=== PATIENT | male | born 1940 | race Caucasian/White ===

== ENCOUNTER → 2016-12-30 | Outpatient (CLI) | payer MEDICARE, BC ==
[~2016-12-30] MED LIST: ADVA250A INH; ALBU1.25 NEB; ASPI81 PO; CLOP75 PO; FEXO180 PO; FISH1000 PO; GLUCTAB47 PO; LIPI80TA16 PO; MOME17I; MONT10TA2 PO; TAB-TAB PO; TOPR50TA PO; VENTAER INH
[2016-12-30 08:50] LABS: HEMATOCRIT 41.9 % (39.0-51.0); MEAN CELL VOLUME 84.9 FL (80.0-100.0); MEAN CORPUSCULAR HEMOGLOBIN 27.8 PG (27.0-34.0); MEAN CORPUSCULAR HGB CONC 32.8 % (32.0-36.0); PLATELET COUNT 184 TH/MM3 (150-450); RED BLOOD COUNT 4.93 MIL/MM3 (4.50-5.90); RED CELL DISTRIBUTION WIDTH 14.2 % (11.6-17.2); REVIEW FLAG FINAL; WHITE BLOOD COUNT 4.3 TH/MM3 (4.0-11.0)
[2016-12-30 09:09] LABS: BACTERIA, URINE OCC /hpf; BLOOD, URINE NEG (NEG); GLUCOSE,URINE NEG (NEG); KETONE, URINE NEG (NEG); MUCUS URINE FEW /lpf (OCC); NITRITE,URINE NEG (NEG); PH, URINE 5.5 (5.0-8.5); SQUAMOUS EPITHELIAL CELL URINE <1 /hpf (0-5); URINE COLOR YELLOW (YELLW/STRAW)
[2016-12-30 09:10] LABS: MICRO ALBUMIN RANDOM URINE RAW 14.9 MG/L (0.0-30.0)
[2016-12-30 09:20] LABS: ALKALINE PHOSPHATASE 67 U/L (45-117); ALT (GPT) 40 U/L (12-78); ANION GAP 7 MEQ/L (5-15); AST (GOT) 24 U/L (15-37); BICARBONATE 31.1 MEQ/L (21.0-32.0); BLOOD UREA NITROGEN 19 MG/DL (7-18); CHLORIDE 105 MEQ/L (98-107); GLOMERULAR FILTRATION RATE 71 ML/MIN (>89); GLUCOSE,FASTING 113 MG/DL (74-99); HDL CHOLESTEROL 73.2 MG/DL (40.0-60.0); LDL CHOLESTEROL 50 MG/DL (0-99); LDL CHOLESTEROL DIRECT 71 MG/DL (0-99); POTASSIUM 4.8 MEQ/L (3.5-5.1); SODIUM (NA) 143 MEQ/L (136-145); TOTAL BILIRUBIN ADULT 0.3 MG/DL (0.2-1.0)
[2016-12-30 11:38] LABS: HEMOGLOBIN A1a 1.1 %; HEMOGLOBIN Ao 83.2 %; HEMOGLOBIN LA1C 2.1 %; HEMOGLOBIN P3 4.2 %
== END ==
LOC: PLAB 06:59
PROVIDERS: ATTEND Family Medicine
DX: I25.10 Atherosclerotic heart disease of native coronary artery without angina pectoris (principal); E11.9 Type 2 diabetes mellitus without complications; E78.2 Mixed hyperlipidemia; I10 Essential (primary) hypertension
CPT/HCPCS: 36415; 80053; 80061; 81001; 82043; 83036; 83721; 85027

== ENCOUNTER → 2017-04-04 | Outpatient (CLI) | payer MEDICARE, BC ==
[2017-04-04 09:17] LABS: HEMATOCRIT 41.9 % (39.0-51.0); MEAN CELL VOLUME 83.1 FL (80.0-100.0); MEAN CORPUSCULAR HEMOGLOBIN 27.6 PG (27.0-34.0); MEAN CORPUSCULAR HGB CONC 33.2 % (32.0-36.0); PLATELET COUNT 214 TH/MM3 (150-450); RED BLOOD COUNT 5.04 MIL/MM3 (4.50-5.90); RED CELL DISTRIBUTION WIDTH 14.6 % (11.6-17.2); REVIEW FLAG FINAL; WHITE BLOOD COUNT 3.9 TH/MM3 (4.0-11.0)
[2017-04-04 09:30] LABS: ANION GAP 9 MEQ/L (5-15); BICARBONATE 26.9 MEQ/L (21.0-32.0); BLOOD UREA NITROGEN 19 MG/DL (7-18); CHLORIDE 106 MEQ/L (98-107); GLUCOSE,FASTING 113 MG/DL (74-99); POTASSIUM 4.4 MEQ/L (3.5-5.1); SODIUM (NA) 142 MEQ/L (136-145)
[2017-04-04 09:31] LABS: AST (GOT) 30 U/L (15-37); GLOMERULAR FILTRATION RATE 71 ML/MIN (>89)
[2017-04-04 09:33] LABS: ALKALINE PHOSPHATASE 76 U/L (45-117); ALT (GPT) 44 U/L (12-78); HDL CHOLESTEROL 63.6 MG/DL (40.0-60.0); LDL CHOLESTEROL 60 MG/DL (0-99); LDL CHOLESTEROL DIRECT 60 MG/DL (0-99); TOTAL BILIRUBIN ADULT 0.4 MG/DL (0.2-1.0)
[2017-04-04 15:34] LABS: HEMOGLOBIN A1a 1.2 %; HEMOGLOBIN Ao 83.1 %; HEMOGLOBIN F 1.1 %; HEMOGLOBIN P3 4.1 %
== END ==
LOC: PLAB 07:15
PROVIDERS: ATTEND Urology
DX: R97.20 Elevated prostate specific antigen [PSA] (principal); I25.10 Atherosclerotic heart disease of native coronary artery without angina pectoris; E11.9 Type 2 diabetes mellitus without complications; E78.5 Hyperlipidemia, unspecified; I10 Essential (primary) hypertension
CPT/HCPCS: 36415; 80053; 80061; 83036; 83721; 84153; 85027

== ENCOUNTER → 2017-07-03 | Outpatient (CLI) | payer MEDICARE, BC ==
[2017-07-03 09:38] LABS: AUTOMATED NEUTROPHIL # 1.5 TH/MM3 (1.8-7.7); BASOPHIL % 0.6 % (0.0-2.0); EOSINOPHIL # 0.2 TH/MM3 (0-0.4); EOSINOPHIL % 5.8 % (0.0-4.0); HEMATOCRIT 42.5 % (39.0-51.0); HEMO FLAGS DIFF FINAL; LYMPH % 45.9 % (9.0-44.0); LYMPHOCYTE # 1.9 TH/MM3 (1.0-4.8); MEAN CELL VOLUME 84.8 FL (80.0-100.0); MEAN CORPUSCULAR HEMOGLOBIN 27.5 PG (27.0-34.0); MEAN CORPUSCULAR HGB CONC 32.4 % (32.0-36.0); MONO % 10.8 % (0.0-8.0); NEUT % 36.9 % (16.0-70.0); PLATELET COUNT 203 TH/MM3 (150-450); RED BLOOD COUNT 5.01 MIL/MM3 (4.50-5.90); RED CELL DISTRIBUTION WIDTH 14.9 % (11.6-17.2); WHITE BLOOD COUNT 4.1 TH/MM3 (4.0-11.0)
[2017-07-03 09:55] LABS: ANION GAP 7 MEQ/L (5-15); AST (GOT) 29 U/L (15-37); BICARBONATE 27.5 MEQ/L (21.0-32.0); BLOOD UREA NITROGEN 18 MG/DL (7-18); CHLORIDE 105 MEQ/L (98-107); GLOMERULAR FILTRATION RATE 82 ML/MIN (>89); GLUCOSE,FASTING 94 MG/DL (74-99); POTASSIUM 4.5 MEQ/L (3.5-5.1); SODIUM (NA) 139 MEQ/L (136-145)
[2017-07-03 09:58] LABS: ALKALINE PHOSPHATASE 74 U/L (45-117); ALT (GPT) 38 U/L (12-78); HDL CHOLESTEROL 64.2 MG/DL (40.0-60.0); LDL CHOLESTEROL 61 MG/DL (0-99); LDL CHOLESTEROL DIRECT 70 MG/DL (0-99); TOTAL BILIRUBIN ADULT 0.4 MG/DL (0.2-1.0)
[2017-07-03 15:53] LABS: HEMOGLOBIN A1a 1.2 %; HEMOGLOBIN Ao 83.2 %; HEMOGLOBIN F 1.1 %; HEMOGLOBIN P3 4.1 %
== END ==
LOC: PLAB 07:49
PROVIDERS: ATTEND Family Medicine
DX: I25.10 Atherosclerotic heart disease of native coronary artery without angina pectoris (principal); E11.9 Type 2 diabetes mellitus without complications; E78.2 Mixed hyperlipidemia; I10 Essential (primary) hypertension
CPT/HCPCS: 36415; 80053; 80061; 83036; 83721; 85025

== ENCOUNTER → 2017-10-06 | Outpatient (CLI) | payer MEDICARE, BC ==
[2017-10-06 14:13] LABS: HEMATOCRIT 42.9 % (39.0-51.0); MEAN CELL VOLUME 83.8 FL (80.0-100.0); MEAN CORPUSCULAR HEMOGLOBIN 27.8 PG (27.0-34.0); MEAN CORPUSCULAR HGB CONC 33.2 % (32.0-36.0); PLATELET COUNT 221 TH/MM3 (150-450); RED BLOOD COUNT 5.13 MIL/MM3 (4.50-5.90); RED CELL DISTRIBUTION WIDTH 14.5 % (11.6-17.2); REVIEW FLAG FINAL; WHITE BLOOD COUNT 3.8 TH/MM3 (4.0-11.0)
[2017-10-06 14:22] LABS: ANION GAP 4 MEQ/L (5-15); AST (GOT) 24 U/L (15-37); BICARBONATE 30.3 MEQ/L (21.0-32.0); BLOOD UREA NITROGEN 15 MG/DL (7-18); CHLORIDE 104 MEQ/L (98-107); GLOMERULAR FILTRATION RATE 87 ML/MIN (>89); GLUCOSE,FASTING 114 MG/DL (74-99); POTASSIUM 4.3 MEQ/L (3.5-5.1); SODIUM (NA) 138 MEQ/L (136-145)
[2017-10-06 14:26] LABS: ALKALINE PHOSPHATASE 70 U/L (45-117); ALT (GPT) 43 U/L (12-78); HDL CHOLESTEROL 75.1 MG/DL (40.0-60.0); LDL CHOLESTEROL 61 MG/DL (0-99); LDL CHOLESTEROL DIRECT 70 MG/DL (0-99); TOTAL BILIRUBIN ADULT 0.4 MG/DL (0.2-1.0)
[2017-10-06 16:19] LABS: HEMOGLOBIN A1a 1.3 %; HEMOGLOBIN A1b 1.1 %; HEMOGLOBIN Ao 82.4 %; HEMOGLOBIN F 1.2 %; HEMOGLOBIN LA1C 2.3 %; HEMOGLOBIN P3 4.3 %
== END ==
LOC: PLAB 09:12
PROVIDERS: ATTEND Family Medicine
DX: I25.10 Atherosclerotic heart disease of native coronary artery without angina pectoris (principal); E11.9 Type 2 diabetes mellitus without complications; E78.2 Mixed hyperlipidemia; I10 Essential (primary) hypertension
CPT/HCPCS: 36415; 80053; 80061; 83036; 83721; 85027

== ENCOUNTER → 2017-11-10 | Outpatient (CLI) | payer MEDICARE, BC ==
[2017-11-10 09:23] LABS: HEMATOCRIT 41.6 % (39.0-51.0); HEMOGLOBIN 13.8 GM/DL (13.0-17.0); MEAN CELL VOLUME 83.9 FL (80.0-100.0); MEAN CORPUSCULAR HEMOGLOBIN 27.9 PG (27.0-34.0); MEAN CORPUSCULAR HGB CONC 33.3 % (32.0-36.0); MEAN PLATELET VOLUME 9.2 FL (7.0-11.0); PLATELET COUNT 227 TH/MM3 (150-450); RED BLOOD COUNT 4.96 MIL/MM3 (4.50-5.90); RED CELL DISTRIBUTION WIDTH 14.9 % (11.6-17.2); WHITE BLOOD COUNT 4.4 TH/MM3 (4.0-11.0)
[2017-11-10 10:31] LABS: ALBUMIN 4.1 GM/DL (3.4-5.0); AST (GOT) 25 U/L (15-37); BICARBONATE 29.1 MEQ/L (21.0-32.0); BLOOD UREA NITROGEN 21 MG/DL (7-18); CALCIUM 9.1 MG/DL (8.5-10.1); CHLORIDE 105 MEQ/L (98-107); CREATININE 0.87 MG/DL (0.60-1.30); GLOMERULAR FILTRATION RATE 85 ML/MIN (>89); GLUCOSE,FASTING 110 MG/DL (74-99); SODIUM (NA) 140 MEQ/L (136-145)
[2017-11-10 10:32] LABS: ALT (GPT) 41 U/L (12-78); CHOLESTEROL 146 MG/DL (120-200); TRIGLYCERIDES 84 MG/DL (42-150)
[2017-11-10 10:35] LABS: ALKALINE PHOSPHATASE 60 U/L (45-117); CHOLESTEROL/ HDL RATIO 2.28 RATIO; HDL CHOLESTEROL 63.8 MG/DL (40.0-60.0); LDL CHOLESTEROL 65 MG/DL (0-99); LDL CHOLESTEROL DIRECT 66 MG/DL (0-99); TOTAL BILIRUBIN ADULT 0.4 MG/DL (0.2-1.0); TOTAL PROTEIN 7.8 GM/DL (6.4-8.2)
[2017-11-10 16:12] LABS: HEMOGLOBIN A1C 6.8 % (4.3-6.0)
== END ==
LOC: PLAB 07:13
PROVIDERS: ATTEND Urology
DX: E29.1 Testicular hypofunction (principal); I25.10 Atherosclerotic heart disease of native coronary artery without angina pectoris; E11.9 Type 2 diabetes mellitus without complications; E78.2 Mixed hyperlipidemia; I10 Essential (primary) hypertension; Z12.5 Encounter for screening for malignant neoplasm of prostate
CPT/HCPCS: 36415; 80053; 80061; 83036; 83721; 84403; 85027; G0103

== ENCOUNTER → 2018-04-14 | Outpatient (CLI) | payer MEDICARE, BC ==
[2018-04-14 10:38] LABS: HEMATOCRIT 41.5 % (39.0-51.0); HEMOGLOBIN 13.3 GM/DL (13.0-17.0); MEAN CELL VOLUME 83.7 FL (80.0-100.0); MEAN CORPUSCULAR HEMOGLOBIN 26.9 PG (27.0-34.0); MEAN CORPUSCULAR HGB CONC 32.1 % (32.0-36.0); PLATELET COUNT 283 TH/MM3 (150-450); RED BLOOD COUNT 4.95 MIL/MM3 (4.50-5.90); RED CELL DISTRIBUTION WIDTH 15.9 % (11.6-17.2); WHITE BLOOD COUNT 3.5 TH/MM3 (4.0-11.0)
[2018-04-14 13:16] LABS: ALBUMIN 3.8 GM/DL (3.4-5.0); AST (GOT) 25 U/L (15-37); BICARBONATE 26.6 MEQ/L (21.0-32.0); BLOOD UREA NITROGEN 12 MG/DL (7-18); CALCIUM 9.5 MG/DL (8.5-10.1); CHLORIDE 109 MEQ/L (98-107); CREATININE 0.84 MG/DL (0.60-1.30); GLOMERULAR FILTRATION RATE 88 ML/MIN (>89); GLUCOSE,FASTING 119 MG/DL (74-99); SODIUM (NA) 145 MEQ/L (136-145)
[2018-04-14 13:17] LABS: ALT (GPT) 42 U/L (12-78); CHOLESTEROL 152 MG/DL (120-200)
[2018-04-14 13:19] LABS: ALKALINE PHOSPHATASE 70 U/L (45-117); CHOLESTEROL/ HDL RATIO 2.23 RATIO; LDL CHOLESTEROL 68 MG/DL (0-99); LDL CHOLESTEROL DIRECT 72 MG/DL (0-99); TOTAL BILIRUBIN ADULT 0.3 MG/DL (0.2-1.0); TOTAL PROTEIN 7.2 GM/DL (6.4-8.2); TRIGLYCERIDES 82 MG/DL (42-150)
[2018-04-14 14:04] LABS: HEMOGLOBIN A1C 6.9 % (4.3-6.0)
== END ==
LOC: PLAB 07:48
PROVIDERS: ATTEND Family Medicine
DX: I25.10 Atherosclerotic heart disease of native coronary artery without angina pectoris (principal); E11.9 Type 2 diabetes mellitus without complications; E78.5 Hyperlipidemia, unspecified; I10 Essential (primary) hypertension
CPT/HCPCS: 36415; 80053; 80061; 83036; 83721; 85027

== ENCOUNTER 2018-08-03 20:37 | Observation (INO) ==
[2018-08-03] MEDS: Sod Chloride 0.9% Inj 1,000 ML IV.CONT SCH (21:27)
[2018-08-03 21:45] LABS: Baso # (Auto) 0.1 th/mm3 (0.0-0.2); Eos # (Auto) 0.1 th/mm3 (0.0-0.4); Eos % (Auto) 1.6 % (0.0-4.0); Hematocrit 42.3 % (39.0-51.0); Hemoglobin 13.9 gm/dL (13.0-17.0); Lymph % (Auto) 39.2 % (9.0-44.0); Mean Corpuscular HGB Conc 32.9 % (32.0-36.0); Mean Corpuscular Hemoglobin 27.7 pg (27.0-34.0); Mean Corpuscular Volume 84.2 fL (80.0-100.0); Mean Platelet Volume 9.3 fL (7.0-11.0); Mono # (Auto) 0.4 th/mm3 (0.0-0.9); Mono % (Auto) 8.8 % (0.0-8.0); Neut # (Auto) 2.5 th/mm3 (1.8-7.7); Neut % (Auto) 49.4 % (16.0-70.0); Platelet Count 205 th/mm3 (150-450); Red Blood Count 5.02 mil/mm3 (4.50-5.90); Red Cell Distribution Width 13.9 % (11.6-17.2); White Blood Count 5.1 th/mm3 (4.0-11.0)
[2018-08-03 21:56] LABS: Chloride 105 meq/L (98-107); Potassium 4.1 meq/L (3.5-5.1); Sodium 141 meq/L (136-145)
--- NOTE | 2018-08-03 21:56 | XR ---
EXAM DATE: 08/03/2018 9:17 PM EDT AGE/SEX: 78 years / Male INDICATIONS: Shortness of breath and chest pain. CLINICAL DATA: This is the patient's initial encounter. Patient reports that signs and symptoms have been present for 1 day and indicates a pain score of 5/10. MEDICAL/SURGICAL HISTORY: Asthma. . Cardiac stent. COMPARISON: No prior exams available for comparison. FINDINGS: A single AP view of the chest demonstrates the lungs to be symmetrically aerated without evidence of mass, infiltrate or effusion. The cardiomediastinal contours are unremarkable. Osseous structures a re intact. CONCLUSION: No acute cardiopulmonary disease. Electronically signed by: Yash Bess MD 08/03/2018 9:55 PM EDT
[2018-08-03 22:00] LABS: Albumin 3.8 g/dL (3.4-5.0); Anion Gap 8 meq/L (5-15); Blood Urea Nitrogen 13 mg/dL (7-18); Calcium 9.1 mg/dL (8.5-10.1); Carbon Dioxide 27.6 meq/L (21.0-32.0); Glucose,Random 126 mg/dL (74-106); Lipase 36 U/L (73-393)
[2018-08-03 22:02] LABS: Activated Partial Thrombo Time 24.5 sec (24.3-30.1); Prothrombin Time 10.4 sec (9.8-11.6)
[2018-08-03 22:03] LABS: Alanine Aminotransferase 43 U/L (12-78); Aspartate Aminotransferase 26 U/L (15-37); Glomerular Filtration Rate Greater Than 89 mL/min (>89)
[2018-08-03 22:05] LABS: Total Protein 7.4 g/dL (6.4-8.2)
[2018-08-03 22:06] LABS: Alkaline Phosphatase 68 U/L (45-117); Creatine Kinase 151 U/L (39-308)
[2018-08-03 22:18] LABS: Creatine Kinase MB 2.7 ng/mL (0.5-3.6)
--- NOTE | 2018-08-03 22:55 | ED ---
HPI General Chief Complaint: Chest Pain Stated Complaint: Chest pain Time Seen by Provider: 08/03/18 22:49 Source: patient Mode of arrival: ambulatory Limitations: no limitations History of Present Illness HPI narrative: 78-year-old male presents to the emergency department by private transportation the care of his spouse for complaint of chest tightness and squeeze associated with mild diaphoresis shortness of breath and nausea. Just prior to arriving to the emergency department had large episode of emesis no hematemesis no coffee-ground emesis. Patient also had large bowel movement earlier today without melena hematochezia. Patient does take aspirin and Plavix. Patient has known history of cardiac disease with previous VT and stent placement also has hypertension and dyslipidemia. Patient states earlier today between 9 and 12 he was washing his parents he left-sided chest tightness with fatigue and nausea as well as mild diaphoresis and shortness of breath decided to stop his activity went inside and rested with minimal improvement also felt nauseated at that time had large bowel movement symptoms did not resolve and so after 9 hours of symptoms decided come to the emergency room for further evaluation. Just upon arrival to the emergency department had large episode of emesis. Patient continued his complaint of nausea. Presently discomfort and chest is no longer squeeze or tightness and rates it as 0/10 in intensity. Patient is followed by roll wrapper Dr. Carr for dark. Patient states he is scheduled for outpatient stress test and cardiac evaluation next week. No tobacco use no alcohol use. MD complaint: Reports chest pain STEMI Alert: No Onset (ago): hour(s) Duration: constant and improved Onset: during exertion Pain location: Reports left chest Severity: moderate Severity scale (1-10): 5 Quality: Reports tightness Pain radiation: Reports none Relieving factors: rest Exacerbating factors: exertion Context: Denies recent illness, recent surgery, recent immobilization, recent travel, trauma/injury, new medications and history of DVT/PE Associated symptoms: Reports nausea, vomiting, diaphoresis and palpitations; Denies dyspnea, sense of impending doom, syncope, fever, cough and leg swelling Treatments prior to arrival chest pain: Reports none Related Data Home Medications Medication Instructions Recorded Confirmed Calcium 500 630 mg PO DAILY 08/03/18 08/03/18 Fish Oil 1,200 mg PO BID 08/03/18 08/03/18 Glucosamine 1,500 mg PO BID 08/03/18 08/03/18 albuterol sulfate 1.25 mg INHALATION QID PRN 08/03/18 08/03/18 albuterol sulfate [ProAir HFA] 2 puff INHALATION Q4-6H PRN 08/03/18 08/03/18 aspirin [Aspirin Low Dose] 81 mg PO DAILY 08/03/18 08/03/18 atorvastatin 80 mg PO QPM 08/03/18 08/03/18 cholecalciferol (vitamin D3) 2,000 unit PO DAILY 08/03/18 08/03/18 [Vitamin D3] clopidogrel 75 mg PO QPM 08/03/18 08/03/18 fexofenadine 180 mg PO QPM 08/03/18 08/03/18 fexofenadine-pseudoephedrine 1 tab PO Q12H PRN 08/03/18 08/03/18 [Rebeca-D 12 Hour] finasteride 5 mg PO QPM 08/03/18 08/03/18 fluticasone-salmeterol [Advair 1 inh INHALATION BID 08/03/18 08/03/18 Diskus] guaifenesin [Mucinex] 600 mg PO Q12H 08/03/18 08/03/18 lisinopril 10 mg PO QPM 08/03/18 08/03/18 meloxicam 15 mg PO DAILY PRN 08/03/18 08/03/18 mometasone [Nasonex] 2 spray INTRANASAL DAILY PRN 08/03/18 08/03/18 montelukast 10 mg PO QPM 08/03/18 08/03/18 multivitamin 1 tab PO DAILY 08/03/18 08/03/18 omeprazole-sodium bicarbonate 1 cap PO DAILY 08/03/18 08/03/18 [Zegerid OTC] phosphorated carbohydrate [Emetrol] 5 ml PO Q15M PRN 08/03/18 08/03/18 phosphorated carbohydrate [Emetrol] 5 ml PO Q15M PRN 08/03/18 08/03/18 promethazine-codeine 5 ml PO Q6H PRN 08/03/18 08/03/18 tamsulosin 0.4 mg PO QPM 08/03/18 08/03/18 trazodone 50 mg PO HS PRN 08/03/18 08/03/18 Allergies Allergy/AdvReac Type Severity Reaction Status Date / Time cephalexin Allergy Severe Rash Verified 08/03/18 22:01 diatrizoate meglumine Allergy Severe ALMOST Verified 08/03/18 22:01 CODED gadobenic acid Allergy Severe ALMOST Verified 08/03/18 22:01 CODED gadodiamide Allergy Severe ALMOST Verified 08/03/18 22:01 CODED gadoteridol Allergy Severe ALMOST Verified 08/03/18 22:01 CODED iodixanol Allergy Severe ALMOST Verified 08/03/18 22:01 CODED iohexol Allergy Severe ALMOST Verified 08/03/18 22:01 CODED Review of Systems ROS: all other systems reviewed are negative PMFSH Medical History Medical History Asthma (Acute) High cholesterol (Acute) Surgical History Surgical History History of heart artery stent (Acute) Social History Social History Substance History: No History of Abuse Second Hand Smoke Exposure: Yes (in past) Smoking Status: Never smoker How Often Do You Have a Drink Containing Alcohol: Never Recent Out of Country Travel within the Last 8 Weeks: No Immunization History Tetanus Immunization: <5 Years Exam Narrative Exam Narrative: GENERAL: Well-nourished, well-developed patient. SKIN: Focused skin assessment warm/dry. HEAD: Normocephalic. EYES: No scleral icterus. No injection or drainage. NECK: Supple, trachea midline. No JVD or lymphadenopathy. CARDIOVASCULAR: Regular rate and rhythm without murmurs, gallops, or rubs. RESPIRATORY: Breath sounds equal bilaterally. No accessory muscle use. GASTROINTESTINAL: Abdomen soft, non-tender, nondistended. MUSCULOSKELETAL: No cyanosis, or edema. BACK: Nontender without obvious deformity. No CVA tenderness. Course Initial Documented Vital Signs Pulse Oximetry 94 L 08/03/18 20:45 Last Documented Vital Signs Pulse Rate 56 L 08/03/18 22:18 Respiratory Rate 18 08/03/18 22:18 Blood Pressure 123/65 08/03/18 22:18 Pulse Oximetry 93 L 08/03/18 22:18 Medical Decision Making MDM Narrative Medical decision making narrative: 78-year-old male with retrosternal chest pain associated with nausea mild sweats shortness of breath fatigue and large bowel movement presents to the emergency department for complaint of persistent pain since 12 noon that has now resolved after episode of emesis and fatigue. Patient with prior history of VT hypertension dyslipidemia stent placement COPD. Patient also with history of PVCs. Patient identified on EKG to be in sinus rhythm with no acute ST elevation injury pattern however identified to have occasional PVCs. Presently discomfort is 0/10 in intensity but continues complain of nausea therefore patient placed supine IV access obtained placed on hall monitor administered Zofran 4 mg IV x1 dose as well as aspirin 162 mg by mouth sublingual nitro glycerin has been ordered to be administered should patient have recurrent chest discomfort/tightness/squeeze. At 10:55 PM patient is asymptomatic cardiac enzymes are found to be in normal range patient will be admitted to chest pain center per protocol; discussed with Dr Cunha for PCP obs Medical Screen Exam Complete: Yes Emergency Medical Condition: Yes Differential Diagnosis Differential Diagnosis: Chest pain, ACS, VT, dissection, aneurysm, arrhythmia, electrolyte disturbance, dehydration, esophageal spasm, biliary colic, pancreatitis Medical Records Medical records reviewed: Yes I reviewed the patient's medical records. Lab Data Lab results reviewed: Yes I reviewed the patient's lab results. Result diagrams: 08/03/18 21:15 08/03/18 21:15 Lab Results 08/03/18 08/03/18 08/03/18 Range/Units 21:15 21:15 21:15 CBC w Diff Auto diff final WBC 5.1 (4.0-11.0) th/mm3 RBC 5.02 (4.50-5.90) mil/mm3 Hgb 13.9 (13.0-17.0) gm/dL Hct 42.3 (39.0-51.0) % MCV 84.2 (80.0-100.0) fL MCH 27.7 (27.0-34.0) pg MCHC 32.9 (32.0-36.0) % RDW 13.9 (11.6-17.2) % Plt Count 205 (150-450) th/mm3 MPV 9.3 (7.0-11.0) fL Neut % (Auto) 49.4 (16.0-70.0) % Lymph % (Auto) 39.2 (9.0-44.0) % Ward % (Auto) 8.8 H (0.0-8.0) % Eos % (Auto) 1.6 (0.0-4.0) % Baso % (Auto) 1.0 (0.0-2.0) % Neut # (Auto) 2.5 (1.8-7.7) th/mm3 Lymph # (Auto) 2.0 (1.0-4.8) th/mm3 Ward # (Auto) 0.4 (0.0-0.9) th/mm3 Eos # (Auto) 0.1 (0.0-0.4) th/mm3 Baso # (Auto) 0.1 (0.0-0.2) th/mm3 WBC Differential . Differential Comment . PT (9.8-11.6) sec INR Ratio APTT (24.3-30.1) sec Sodium 141 (136-145) meq/L Potassium 4.1 (3.5-5.1) meq/L Chloride 105 (98-107) meq/L Carbon Dioxide 27.6 (21.0-32.0) meq/L Anion Gap 8 (5-15) meq/L BUN 13 (7-18) mg/dL Creatinine 0.74 (0.60-1.30) mg/dL Estimated GFR Greater than 89 (>89) mL/min POC Glucose (68-110) mg/dl Random Glucose 126 H (74-106) mg/dL Calcium 9.1 (8.5-10.1) mg/dL Magnesium 2.0 (1.5-2.5) mg/dL Total Bilirubin 0.5 (0.2-1.0) mg/dL AST 26 (15-37) U/L ALT 43 (12-78) U/L Alkaline Phosphatase 68 (45-117) U/L Total Creatine Kinase 151 (39-308) U/L CK-MB (CK-2) 2.7 (0.5-3.6) ng/mL Troponin I Less than 0.02 L (0.02-0.05) ng/mL B-Natriuretic Peptide 27 (0-100) pg/mL Total Protein 7.4 (6.4-8.2) g/dL Albumin 3.8 (3.4-5.0) g/dL Lipase 36 L (73-393) U/L 08/03/18 08/03/18 Range/Units 21:15 21:40 CBC w Diff WBC (4.0-11.0) th/mm3 RBC (4.50-5.90) mil/mm3 Hgb (13.0-17.0) gm/dL Hct (39.0-51.0) % MCV (80.0-100.0) fL MCH (27.0-34.0) pg MCHC (32.0-36.0) % RDW (11.6-17.2) % Plt Count (150-450) th/mm3 MPV (7.0-11.0) fL Neut % (Auto) (16.0-70.0) % Lymph % (Auto) (9.0-44.0) % Ward % (Auto) (0.0-8.0) % Eos % (Auto) (0.0-4.0) % Baso % (Auto) (0.0-2.0) % Neut # (Auto) (1.8-7.7) th/mm3 Lymph # (Auto) (1.0-4.8) th/mm3 Ward # (Auto) (0.0-0.9) th/mm3 Eos # (Auto) (0.0-0.4) th/mm3 Baso # (Auto) (0.0-0.2) th/mm3 WBC Differential Differential Comment PT 10.4 (9.8-11.6) sec INR 1.0 Ratio APTT 24.5 (24.3-30.1) sec Sodium (136-145) meq/L Potassium (3.5-5.1) meq/L Chloride (98-107) meq/L Carbon Dioxide (21.0-32.0) meq/L Anion Gap (5-15) meq/L BUN (7-18) mg/dL Creatinine (0.60-1.30) mg/dL Estimated GFR (>89) mL/min POC Glucose 124 H (68-110) mg/dl Random Glucose (74-106) mg/dL Calcium (8.5-10.1) mg/dL Magnesium (1.5-2.5) mg/dL Total Bilirubin (0.2-1.0) mg/dL AST (15-37) U/L ALT (12-78) U/L Alkaline Phosphatase (45-117) U/L Total Creatine Kinase (39-308) U/L CK-MB (CK-2) (0.5-3.6) ng/mL Troponin I (0.02-0.05) ng/mL B-Natriuretic Peptide (0-100) pg/mL Total Protein (6.4-8.2) g/dL Albumin (3.4-5.0) g/dL Lipase (73-393) U/L Imaging Data Radiologist's impression: Chest X-Ray 08/03/18 21:17 CONCLUSION: No acute cardiopulmonary disease. ECG Data EKG Prior to Arrival: No Prior ECG tracings: not available for review Interpretation: EKG: Sinus rhythm no acute ST elevation or injury pattern occasional PVCs noted Discharge Plan Discharge Disposition Patient Disposition: 30 Still Patient Discharge Condition Condition: Stable Discharge Details Diagnosis: Chest pain, PVC's (premature ventricular contractions) Physicians Team ED Provider: Laura Cummings Primary Care Provider: Kemal Duran Rxs /Orders / Referrals /Forms Prescriptions: No Action multivitamin Tablet 1 tab PO DAILY RF: 0 fluticasone-salmeterol [Advair Diskus] 250-50 mcg/dose Blister With Device 1 inh INHALATION BID RF: 0 atorvastatin 80 mg Tablet 80 mg PO QPM RF: 0 albuterol sulfate 2.5 mg /3 mL (0.083 %) Solution For Nebulization 1.25 mg INHALATION QID PRN (Reason: Shortness Of Breath) RF: 0 trazodone 50 mg Tablet 50 mg PO HS PRN (Reason: Sleep) RF: 0 meloxicam 15 mg Tablet 15 mg PO DAILY PRN (Reason: Acute Pain) RF: 0 phosphorated carbohydrate [Emetrol] Solution 5 ml PO Q15M PRN (Reason: Nausea) RF: 0 phosphorated carbohydrate [Emetrol] Solution 5 ml PO Q15M PRN (Reason: Nausea) RF: 0 promethazine-codeine 6.25-10 mg/5 mL Syrup 5 ml PO Q6H PRN (Reason: Cough) RF: 0 clopidogrel 75 mg Tablet 75 mg PO QPM RF: 0 fexofenadine 180 mg Tablet 180 mg PO QPM RF: 0 aspirin [Aspirin Low Dose] 81 mg Tablet,Delayed Release (Dr/Ec) 81 mg PO DAILY RF: 0 tamsulosin 0.4 mg Capsule 0.4 mg PO QPM RF: 0 lisinopril 10 mg Tablet 10 mg PO QPM RF: 0 mometasone [Nasonex] 50 mcg/actuation [place],Non-Aerosol 2 spray INTRANASAL DAILY PRN (Reason: Congestion) RF: 0 montelukast 10 mg Tablet 10 mg PO QPM RF: 0 albuterol sulfate [ProAir HFA] 90 mcg/actuation Hfa Aerosol Inhaler 2 puff INHALATION Q4-6H PRN (Reason: Shortness Of Breath) RF: 0 finasteride 5 mg Tablet 5 mg PO QPM RF: 0 cholecalciferol (vitamin D3) [Vitamin D3] 2,000 unit Capsule 2,000 unit PO DAILY RF: 0 Calcium 500 630 mg PO DAILY RF: 0 Fish Oil 1,200 mg PO BID RF: 0 Glucosamine 1,500 mg PO BID RF: 0 fexofenadine-pseudoephedrine [Rebeca-D 12 Hour] 60-120 mg Tablet Extended Release 12 Hr 1 tab PO Q12H PRN (Reason: Congestion) RF: 0 omeprazole-sodium bicarbonate [Zegerid OTC] 20-1.1 mg-gram Capsule 1 cap PO DAILY RF: 0 guaifenesin [Mucinex] 600 mg Tablet Extended Release 12hr 600 mg PO Q12H RF: 0 Discharge Instructions Patient Printed Instructions: Chest Pain (ED) Status ED Status: With Doctor
[2018-08-03] MEDS ORDERED: Acetaminophen 500 MG Tablet PO PRN (23:27)
[2018-08-03] MEDS ORDERED: traZODone 50 MG Tablet PO PRN (23:31)
[2018-08-04 00:47] LABS: Creatine Kinase 125 U/L (39-308)
[2018-08-04] MEDS: guaiFENesin 600 MG ER Tablet PO SCH ×3 (01:18→23:53)
[2018-08-04 04:22] LABS: Creatine Kinase 125 U/L (39-308)
[2018-08-04] MEDS: Sod Chloride 0.9% Inj 1,000 ML IV.CONT SCH ×3 (07:20→21:24)
--- NOTE | 2018-08-04 08:13 | P.HP ---
History of Present Illness Primary Care Physician: Kemal Duran MD Chief Complaint: chest pain History of Present Illness: This is a 78-year-old male patient with a known medical history ID with stent placement, retention, hyperlipidemia, asthma who presented to the ED with complaints of chest pain. Patient states that yesterday morning around 10 AM while washing his car he developed a left sided chest pain that was characterized as squeezing in nature, with associated nausea and diaphoresis. He states that the pain had continued, rated a 8 out of 10 at its worst on pain scale. He states that he went inside to lay down for a couple hours and woke up around noon with continued intermittent pain. He states that the pain comes and goes with activity and is relieved with rest. He states that the pain comes for a couple minutes and then goes away. Patient states that throughout the day yesterday the pain had continued on and off, and roughly around 2100 he presented to the ED. He was given nitroglycerin which helped the pain significantly. Patient is actually scheduled for outpatient cardiac stress test next week with Dr. Lin. Patient denies any recent illness including fever, chills, cough, shortness of breath, dumping, nausea, vomiting, diarrhea or dysuria. Patient did have a history of ID in 2004 with cardiac stent placement. - Diagnosis (1) Chest pain (2) PVC's (premature ventricular contractions) Review of Systems All other systems reviewed negative except as stated in HPI PMFSH - History History Provided By: Patient - Medical History Medical History: Medical History (Last Reviewed 08/04/18 @ 08:07 by Sruthi Tejeda) Asthma High cholesterol - Surgical History Surgical History: Surgical History (Last Reviewed 08/04/18 @ 08:07 by Sruthi Tejeda) History of heart artery stent - Family History Family History: Family History (Last Updated 08/04/18 @ 08:07 by Sruthi Tejeda) Other Family history in first degree relatives is unremarkable - Tobacco History Second Hand Smoke Exposure: No Smoking Status: Never smoker - Alcohol History How Often Do You Have a Drink Containing Alcohol: Never - Substance Use History Substance History: No History of Abuse - Travel History Recent Travel in the [place] Within the Last 8 Weeks: No Recent Travel Out of the Country Within the Last 8 Weeks: No - Immunization History Tetanus Immunization: <5 Years Medications and Allergies Active Medications: Active Medications Acetaminophen (Tylenol) 500 mg PO Q4H PRN PRN Reason: HEADACHE Aspirin (Ecotrin) 81 mg PO DAILY [facility] Atorvastatin Calcium (Lipitor) 80 mg PO HS [facility] Budesonide/Formoterol Fumarate (Symbicort 160/4.5 Mcg Inh) 2 puff INH BID [facility] Clopidogrel Bisulfate (Plavix) 75 mg PO QPM [facility] Finasteride (Proscar) 5 mg PO QPM [facility] Guaifenesin (Mucinex Er) 600 mg PO Q12H [facility] Last Admin: 08/04/18 01:18 Dose: Not Given Sodium Chloride (Ns Inj) 1,000 mls @ 100 mls/hr IV.CONT .Q10H [facility] Last Infusion: 08/04/18 02:20 Dose: 100 mls/hr Lisinopril (Prinivil) 10 mg PO QPM [facility] Loratadine (Claritin) 10 mg PO HS [facility] Mometasone Furoate (Nasonex Nasal [place]) 2 spray EACH NARE DAILY PRN PRN Reason: NASAL ALLERGIES Montelukast Sodium (Singulair) 10 mg PO QPM [facility] Nitroglycerin (Nitrostat Sl) 0.4 mg SL Q5M PRN PRN Reason: CHEST PAIN Pantoprazole Sodium (Protonix) 20 mg PO DAILY [facility] Sodium Chloride (Ns Flush) 2 ml IV.FLUSH BID [facility] Sodium Chloride (Ns Flush) 2 ml IV.FLUSH PRN PRN PRN Reason: FLUSH AFTER USING IV ACCESS Tamsulosin HCl (Flomax) 0.4 mg PO QPM [facility] Trazodone HCl (Desyrel) 50 mg PO HS PRN PRN Reason: Sleep Allergies Allergy/AdvReac Type Severity Reaction Status Date / Time cephalexin Allergy Severe Rash Verified 08/03/18 22:01 diatrizoate meglumine Allergy Severe ALMOST Verified 08/03/18 22:01 CODED gadobenic acid Allergy Severe ALMOST Verified 08/03/18 22:01 CODED gadodiamide Allergy Severe ALMOST Verified 08/03/18 22:01 CODED gadoteridol Allergy Severe ALMOST Verified 08/03/18 22:01 CODED iodixanol Allergy Severe ALMOST Verified 08/03/18 22:01 CODED iohexol Allergy Severe ALMOST Verified 08/03/18 22:01 CODED Home Medications Medication Instructions Recorded Confirmed Type Calcium 500 630 mg PO DAILY 08/03/18 08/03/18 History Fish Oil 1,200 mg PO BID 08/03/18 08/03/18 History Glucosamine 1,500 mg PO BID 08/03/18 08/03/18 History albuterol sulfate 1.25 mg INHALATION QID PRN 08/03/18 08/03/18 History albuterol sulfate [ProAir HFA] 2 puff INHALATION Q4-6H PRN 08/03/18 08/03/18 History aspirin [Aspirin Low Dose] 81 mg PO QPM 08/03/18 08/03/18 History atorvastatin 80 mg PO QPM 08/03/18 08/03/18 History cholecalciferol (vitamin D3) 2,000 unit PO DAILY 08/03/18 08/03/18 History [Vitamin D3] clopidogrel 75 mg PO QPM 08/03/18 08/03/18 History fexofenadine 180 mg PO QPM 08/03/18 08/03/18 History finasteride 5 mg PO QPM 08/03/18 08/03/18 History fluticasone-salmeterol [Advair 1 inh INHALATION BID 08/03/18 08/03/18 History Diskus] guaifenesin [Mucinex] 600 mg PO Q12H 08/03/18 08/03/18 History lisinopril 10 mg PO QPM 08/03/18 08/03/18 History meloxicam 15 mg PO DAILY PRN 08/03/18 08/03/18 History mometasone [Nasonex] 2 spray INTRANASAL QPM PRN 08/03/18 08/03/18 History montelukast 10 mg PO QPM 08/03/18 08/03/18 History multivitamin 1 tab PO DAILY 08/03/18 08/03/18 History omeprazole-sodium bicarbonate 1 cap PO QPM 08/03/18 08/03/18 History [Zegerid OTC] phosphorated carbohydrate [Emetrol] 5 ml PO Q15M PRN 08/03/18 08/03/18 History promethazine-codeine 5 ml PO Q6H PRN 08/03/18 08/03/18 History tamsulosin 0.4 mg PO QPM 08/03/18 08/03/18 History trazodone 50 mg PO HS PRN 08/03/18 08/03/18 History Exam Vital signs: Vital Signs 08/03/18 20:45 08/03/18 20:50 08/03/18 21:17 Temperature Pulse Rate 67 54 L Respiratory Rate 20 18 Blood Pressure 151/73 H 146/77 H Pulse Oximetry 94 L 98 98 08/03/18 21:32 08/03/18 21:56 08/03/18 21:57 Temperature Pulse Rate 55 L Respiratory Rate 18 Blood Pressure 129/73 140/72 139/76 Pulse Oximetry 97 08/03/18 22:18 08/04/18 00:02 08/04/18 02:14 Temperature Pulse Rate 56 L 64 Respiratory Rate 18 20 Blood Pressure 123/65 109/61 Pulse Oximetry 93 L 96 97 08/04/18 04:00 Temperature 97.7 F Pulse Rate 56 L Respiratory Rate 18 Blood Pressure 148/69 H Pulse Oximetry 98 Intake & Output 08/03/18 08/04/18 08/04/18 18:59 06:59 18:59 Intake Total 500 / 500 Balance 500 / 500 Weight 78.3 kg Intake: IV 500 / 500 NS Inj 1,000 ML @ 100 mls/hr IV 500 / 500 .CONT .Q10H [facility] Rx#:[id number] Other: # Voids 1 Weight On Admission 79.7 kg Narrative: GENERAL: Well-developed, well-nourished patient in [facility]. SKIN: Warm and dry. No rash. HEAD: Normocephalic. Atraumatic. EYES: Pupils equal and round. No scleral icterus. No injection or drainage. ENT: No nasal bleeding or discharge. Mucous membranes pink and moist. NECK: Supple. Trachea midline. CARDIOVASCULAR: Regular rate and rhythm. S1, S2 noted. No murmur appreciated. No chest pain to palpation. RESPIRATORY: No accessory muscle use. Clear to auscultation. Breath sounds equal bilaterally. GASTROINTESTINAL: Abdomen soft, non-tender, nondistended. Normoactive bowel sounds x4. MUSCULOSKELETAL: No obvious deformities. Extremities without clubbing, cyanosis , or edema. NEUROLOGICAL: Awake and alert. No obvious cranial nerve deficits. Motor grossly within normal limits. 5/5 muscle strength in bilateral upper and lower extremities. Normal speech. PSYCHIATRIC: Appropriate mood and affect; insight and judgment normal. Results - Labs CBC & Chem 7: 08/03/18 21:15 08/03/18 21:15 Labs: Laboratory Results - last 24 hr 08/03/18 08/03/18 08/03/18 21:15 21:15 21:15 CBC w Diff Auto diff final WBC 5.1 RBC 5.02 Hgb 13.9 Hct 42.3 MCV 84.2 MCH 27.7 MCHC 32.9 RDW 13.9 Plt Count 205 MPV 9.3 Neut % (Auto) 49.4 Lymph % (Auto) 39.2 Traverse % (Auto) 8.8 H Eos % (Auto) 1.6 Baso % (Auto) 1.0 Neut # (Auto) 2.5 Lymph # (Auto) 2.0 Traverse # (Auto) 0.4 Eos # (Auto) 0.1 Baso # (Auto) 0.1 WBC Differential . Differential Comment . PT INR APTT Sodium 141 Potassium 4.1 Chloride 105 Carbon Dioxide 27.6 Anion Gap 8 BUN 13 Creatinine 0.74 Estimated GFR Greater than 89 POC Glucose Random Glucose 126 H Calcium 9.1 Magnesium 2.0 Total Bilirubin 0.5 AST 26 ALT 43 Alkaline Phosphatase 68 Total Creatine Kinase 151 CK-MB (CK-2) 2.7 Troponin I Less than 0.02 L B-Natriuretic Peptide 27 Total Protein 7.4 Albumin 3.8 Lipase 36 L 08/03/18 08/03/18 08/04/18 21:15 21:40 00:10 CBC w Diff WBC RBC Hgb Hct MCV MCH MCHC RDW Plt Count MPV Neut % (Auto) Lymph % (Auto) Traverse % (Auto) Eos % (Auto) Baso % (Auto) Neut # (Auto) Lymph # (Auto) Traverse # (Auto) Eos # (Auto) Baso # (Auto) WBC Differential Differential Comment PT 10.4 INR 1.0 APTT 24.5 Sodium Potassium Chloride Carbon Dioxide Anion Gap BUN Creatinine Estimated GFR POC Glucose 124 H Random Glucose Calcium Magnesium Total Bilirubin AST ALT Alkaline Phosphatase Total Creatine Kinase 125 CK-MB (CK-2) Troponin I Less than 0.02 L B-Natriuretic Peptide Total Protein Albumin Lipase 08/04/18 03:30 CBC w Diff WBC RBC Hgb Hct MCV MCH MCHC RDW Plt Count MPV Neut % (Auto) Lymph % (Auto) [place]verse % (Auto) Eos % (Auto) Baso % (Auto) Neut # (Auto) Lymph # (Auto) Traverse # (Auto) Eos # (Auto) Baso # (Auto) WBC Differential Differential Comment PT INR APTT Sodium Potassium Chloride Carbon Dioxide Anion Gap BUN Creatinine Estimated GFR POC Glucose Random Glucose Calcium Magnesium Total Bilirubin AST ALT Alkaline Phosphatase Total Creatine Kinase 125 CK-MB (CK-2) Troponin I Less than 0.02 L B-Natriuretic Peptide Total Protein Albumin Lipase - Imaging Impressions Chest X-Ray 08/03/18 21:17 CONCLUSION: No acute cardiopulmonary disease. Caprini VTE Risk Assessment Caprini VTE Risk Assessment: Moderate/High Risk (score >= 2) Caprini Risk Assessment Model: Point Value = 1 Point Value = 2 Point Value = 3 Point Value = 5 Age 41-60 Minor surgery BMI > 25 kg/m2 Swollen legs Varicose veins or History of unexplained or recurrent spontaneous Oral contraceptives or hormone replacement Sepsis (< 1 month) Serious lung disease, including pneumonia (< 1 month) Abnormal pulmonary function Acute myocardial infarction Congestive heart failure (< 1 month) History of inflammatory bowel disease Medical patient at bed rest Age 61-74 Arthroscopic surgery Major open surgery (> 45 min) Laparoscopic surgery (> 45 min) Malignancy Confined to bed (> 72 hours) Immobilizing plaster cast Central venous access Age >= 75 History of VTE Family history of VTE Factor V Leiden Prothrombin [id number] Lupus anticoagulant Anticardiolipin antibodies Elevated serum homocysteine Heparin-induced thrombocytopenia Other congenital or acquired thrombophilia Stroke (< 1 month) Elective arthroplasty Hip, pelvis, or leg fracture Acute spinal cord injury (< 1 month) Prophylaxis Regimen: Total Risk Factor Score Risk Level Prophylaxis Regimen 0-1 Low Early ambulation 2 Moderate Order ONE of the following: *Sequential Compression Device (SCD) *Heparin 5000 units SQ BID 3-4 Higher Order ONE of the following medications: *Heparin 5000 units SQ TID *Enoxaparin/Lovenox 40 mg SQ daily (WT < 150 kg, CrCl > 30 mL/min) *Enoxaparin/Lovenox 30 mg SQ daily (WT < 150 kg, CrCl > 10-29 mL/min) *Enoxaparin/Lovenox 30 mg SQ BID (WT < 150 kg, CrCl > 30 mL/min) AND/OR *Sequential Compression Device (SCD) 5 or more Highest Order ONE of the following medications: *Heparin 5000 units SQ TID (Preferred with Epidurals) *Enoxaparin/Lovenox 40 mg SQ daily (WT < 150 kg, CrCl > 30 mL/min) *Enoxaparin/Lovenox 30 mg SQ daily (WT < 150 kg, CrCl > 10-29 mL/min) *Enoxaparin/Lovenox 30 mg SQ BID (WT < 150 kg, CrCl > 30 mL/min) AND *Sequential Compression Device (SCD) Assessment and Plan - Assessment (1) Chest pain Code(s): R07.9 - Chest pain, unspecified Status: Acute (2) PVC's (premature ventricular contractions) Code(s): I49.3 - Ventricular premature depolarization Status: Acute - Plan This is a 78-year-old male patient with: Chest pain -Patient presented with chest pain, relieved with nitroglycerin in ED. -Patient follows with Dr. Lin in the outpatient setting. Last seen roughly a year ago. Last stress test was 4 years ago. -ACS has been ruled out with serial EKGs and serial troponins. Troponins are flat. EKG reviewed showing controlled heart rate with, occasional PVCs. No ST changes to indicate any ischemia. -Cardiac telemetry continued overnight, no arrhythmias noted. Pain is still intermittent, nitroglycerin as needed for chest pain. Patient was given aspirin. Will continue. -Chest x-ray reviewed, no acute cardiopulmonary disease noted. -CBC and BMP reviewed, essentially remarkable. -Patient will undergo a cardiac perfusion scan today, to further rule out any ischemia. Further hospitalization and treatment plan will depend on nuclear imaging results. Hyperlipidemia, chronic: We will continue home statin. History of asthma: Not in exacerbation. We will continue home inhaler. DVT prophylaxis: SCDs. Ambulation. (1) Chest pain Qualifiers: Chest pain type: precordial pain Qualified Code(s): R07.2 - Precordial pain
[2018-08-04] MEDS ORDERED: Aspirin 325 MG Tablet PO SCH (09:00)
[2018-08-04] MEDS ORDERED: Mometasone Furoate 50 MCG/ACT 17 GM Nasal Spray Bottle EACH NARE PRN (09:00)
[2018-08-04] MEDS: Pantoprazole Sodium 20 MG DR Tablet PO SCH (09:35)
[2018-08-04] MEDS ORDERED: Regadenoson Inj 0.4 MG/5 ML Syringe IV.PUSH ONE (09:44)
--- NOTE | 2018-08-04 09:57 | NM ---
EXAM DATE: 08/04/2018 7:48 AM EDT AGE/SEX: 78 years / Male INDICATIONS:Angina. . Mid chest pain for one day. CLINICAL DATA: This is the patient's initial encounter. Patient reports that signs and symptoms have been present for 1 day and indicates a pain score of 6/10. MEDICAL/SURGICAL HISTORY: Asthma. Coronary artery stent. COMPARISON: No prior exams available for comparison. DOSE: 8.7 mCi Tc 99m Myoview at rest 25.6 mCi [id number] at stress 0.4 mg Lexiscan STRESS SYMPTOMS: Short of breath. EJECTION FRACTION: 67 % TECHNIQUE: The patient underwent pharmacologic stress with infusion of prescribed dose. Continuous ECG tracing was monitored during stress. Gated SPECT imaging was performed after stress and conventi onal SPECT imaging was performed at rest. The examination was performed on a SPECT/CT scanner, both attenuation and non-corrected datasets were reviewed. FINDINGS: Distribution: The maximum perfused segment at stress is in the anteroseptal wall. Perfusion Study: There is mildly to moderately diminished perfusion involving a small portion of th e inferior wall and inferoapical region with mild redistribution noted. Gated Study: There are intact wall motion and wall thickening without hypokinetic or dyskinetic segm ents. The ejection fraction is calculated at 67%. RISK CATEGORY: Low (<1% Annual Motality Rate) CONCLUSION: Small size moderate severity reversible inferoapical perfusion abnormality Electronically signed by: Cirilo Corrigan MD 08/04/2018 9:55 AM EDT
[2018-08-04] MEDS ORDERED: Meloxicam 15 MG Tablet PO PRN (11:15)
[2018-08-04] MEDS: Budesonide-Formoterol 160/4.5 MCG 6 GM Inhaler INH SCH ×2 (11:35→21:24)
--- NOTE | 2018-08-04 12:36 | TR ---
Date Performed: 08/04/2018 Time Performed: 08:52:23 DOCTOR: Db Mcmillan DRUG LIST: CLINICAL HISTORY: ANGINA REASON FOR TEST: Angina REASON FOR ENDING: OBSERVATION: CONCLUSION: COMMENTS: Lexiscan stress test was performed under standard four minute protocol. Radionuclide was injected one minute prior to ending the test. No electrocardiographic abormalities were present t o suggest ischemia. Nuclear imaging and interpretation are pending.
--- NOTE | 2018-08-04 15:47 | P.CONCA ---
History of Present Illness Service: Cardiology Consult date: 08/04/18 Reason for Consult: Abnormal stress test Primary Care Provider: Kemal Duran MD Chief Complaint: chest pain History of Present Illness: Pleasant 78-year-old male well-known to our practice with a past cardiac history of ASHD with stent to the LAD in 2003 hypertension hyperlipidemia and asthma in 2013 he had a heart cath showing normal LV function widely patent stent in LAD with no evidence of restenosis and mild 50% single vessel disease. He reports that yesterday he was outside washed his car and was drying it off , he developed squeezing in his chest, nausea, and diaphoresis. He went inside and laid down for approximately 3 hours, symptoms resolved. Then he walked to his kitchen and symptoms returned, he called his who brought him to the ER. Patient reports he was given nitroglycerin in the ER and symptoms resolved. Troponins are negative. Nuclear stress test is abnormal. Patient reports symptoms are the same symptoms he experienced prior to his stent placement in 2003. Long discussion had with patient and , we will plan to proceed with heart catheterization tomorrow morning. Will arrange for stat transfer to [facility]. Patient and understand the risk of heart catheterization including , bleeding, stroke, heart attack etc. Review of Systems All other systems reviewed negative except as stated in HPI PMFSH - History History Provided By: Patient - Medical History Medical History: Medical History (Last Reviewed 08/04/18 @ 08:07 by Sruthi Tejeda) Asthma High cholesterol - Surgical History Surgical History: Surgical History (Last Reviewed 08/04/18 @ 08:07 by Sruthi Tejeda) History of heart artery stent - Family History Family History: Family History (Last Updated 08/04/18 @ 08:07 by Sruthi Tejeda) Other Family history in first degree relatives is unremarkable - Social History I have reviewed the patient's Social History: Yes - Tobacco History Second Hand Smoke Exposure: No Smoking Status: Never smoker - Alcohol History How Often Do You Have a Drink Containing Alcohol: Never - Substance Use History Substance History: No History of Abuse - Travel History Recent Travel in the [facility] Within the Last 8 Weeks: No Recent Travel Out of the Country Within the Last 8 Weeks: No - Immunization History Tetanus Immunization: <5 Years Medications and Allergies Allergies Allergy/AdvReac Type Severity Reaction Status Date / Time cephalexin Allergy Severe Rash Verified 08/03/18 22:01 diatrizoate meglumine Allergy Severe ALMOST Verified 08/03/18 22:01 CODED gadobenic acid Allergy Severe ALMOST Verified 08/03/18 22:01 CODED gadodiamide Allergy Severe ALMOST Verified 08/03/18 22:01 CODED gadoteridol Allergy Severe ALMOST Verified 08/03/18 22:01 CODED iodixanol Allergy Severe ALMOST Verified 08/03/18 22:01 CODED iohexol Allergy Severe ALMOST Verified 08/03/18 22:01 CODED Home Medications Medication Instructions Recorded Confirmed Type Calcium 500 630 mg PO DAILY 08/03/18 08/03/18 History Fish Oil 1,200 mg PO BID 08/03/18 08/03/18 History Glucosamine 1,500 mg PO BID 08/03/18 08/03/18 History albuterol sulfate 1.25 mg INHALATION QID PRN 08/03/18 08/03/18 History albuterol sulfate [ProAir HFA] 2 puff INHALATION Q4-6H PRN 08/03/18 08/03/18 History aspirin [Aspirin Low Dose] 81 mg PO QPM 08/03/18 08/03/18 History atorvastatin 80 mg PO QPM 08/03/18 08/03/18 History cholecalciferol (vitamin D3) 2,000 unit PO DAILY 08/03/18 08/03/18 History [Vitamin D3] clopidogrel 75 mg PO QPM 08/03/18 08/03/18 History fexofenadine 180 mg PO QPM 08/03/18 08/03/18 History finasteride 5 mg PO QPM 08/03/18 08/03/18 History fluticasone-salmeterol [Advair 1 inh INHALATION BID 08/03/18 08/03/18 History Diskus] guaifenesin [Mucinex] 600 mg PO Q12H 08/03/18 08/03/18 History lisinopril 10 mg PO QPM 08/03/18 08/03/18 History meloxicam 15 mg PO DAILY PRN 08/03/18 08/03/18 History mometasone [Nasonex] 2 spray INTRANASAL QPM PRN 08/03/18 08/03/18 History montelukast 10 mg PO QPM 08/03/18 08/03/18 History multivitamin 1 tab PO DAILY 08/03/18 08/03/18 History omeprazole-sodium bicarbonate 1 cap PO QPM 08/03/18 08/03/18 History [Zegerid OTC] phosphorated carbohydrate [Emetrol] 5 ml PO Q15M PRN 08/03/18 08/03/18 History promethazine-codeine 5 ml PO Q6H PRN 08/03/18 08/03/18 History tamsulosin 0.4 mg PO QPM 08/03/18 08/03/18 History trazodone 50 mg PO HS PRN 08/03/18 08/03/18 History Active Medications: Active Medications Acetaminophen (Tylenol) 500 mg PO Q4H PRN PRN Reason: HEADACHE Albuterol (Albuterol Neb (Prn)) 1.25 mg NEB QID NEB PRN PRN Reason: SHORTNESS OF BREATH Albuterol (Ventolin Hfa Inh) 2 puff INH Q6H PRN PRN Reason: Shortness Of Breath Aspirin (Ecotrin) 81 mg PO DAILY [facility] Last Admin: 08/04/18 09:34 Dose: 81 mg Atorvastatin Calcium (Lipitor) 80 mg PO HS [facility] Budesonide/Formoterol Fumarate (Symbicort 160/4.5 Mcg Inh) 2 puff INH BID [facility] Last Admin: 08/04/18 11:35 Dose: 2 puff Clopidogrel Bisulfate (Plavix) 75 mg PO QPM [facility] Finasteride (Proscar) 5 mg PO QPM [facility] Guaifenesin (Mucinex Er) 600 mg PO Q12H [facility] Last Admin: 08/04/18 11:36 Dose: 600 mg Sodium Chloride (Ns Inj) 1,000 mls @ 100 mls/hr IV.CONT .Q10H [facility] Last Admin: 08/04/18 07:20 Dose: 100 mls/hr Lisinopril (Prinivil) 10 mg PO QPM [facility] Loratadine (Claritin) 10 mg PO HS [facility] Meloxicam (Mobic) 15 mg PO DAILY PRN PRN Reason: Acute Pain 2-4 Mometasone Furoate (Nasonex Nasal [place]) 2 spray EACH NARE DAILY PRN PRN Reason: NASAL ALLERGIES Montelukast Sodium (Singulair) 10 mg PO QPM [facility] Nitroglycerin (Nitrostat Sl) 0.4 mg SL Q5M PRN PRN Reason: CHEST PAIN Pantoprazole Sodium (Protonix) 20 mg PO DAILY [facility] Last Admin: 08/04/18 09:35 Dose: Not Given Sodium Chloride (Ns Flush) 2 ml IV.FLUSH BID [facility] Last Admin: 08/04/18 10:44 Dose: 2 ml Sodium Chloride (Ns Flush) 2 ml IV.FLUSH PRN PRN PRN Reason: FLUSH AFTER USING IV ACCESS Tamsulosin HCl (Flomax) 0.4 mg PO QPM [facility] Trazodone HCl (Desyrel) 50 mg PO HS PRN PRN Reason: Sleep Exam Vital signs: Vital Signs 08/03/18 20:45 08/03/18 20:50 08/03/18 21:17 Temperature Pulse Rate 67 54 L Respiratory Rate 20 18 Blood Pressure 151/73 H 146/77 H Pulse Oximetry 94 L 98 98 08/03/18 21:32 08/03/18 21:56 08/03/18 21:57 Temperature Pulse Rate 55 L Respiratory Rate 18 Blood Pressure 129/73 140/72 139/76 Pulse Oximetry 97 08/03/18 22:18 08/04/18 00:02 08/04/18 02:14 Temperature Pulse Rate 56 L 64 Respiratory Rate 18 20 Blood Pressure 123/65 109/61 Pulse Oximetry 93 L 96 97 08/04/18 04:00 08/04/18 08:00 08/04/18 09:35 Temperature 97.7 F 98.2 F Pulse Rate 56 L 56 L 66 Respiratory Rate 18 16 Blood Pressure 148/69 H 175/95 H Pulse Oximetry 98 93 L 08/04/18 10:26 08/04/18 13:04 Temperature 99.0 F Pulse Rate 59 L Respiratory Rate 16 Blood Pressure 133/63 Pulse Oximetry 96 98 Intake & Output 08/03/18 08/04/18 08/04/18 18:59 06:59 18:59 Intake Total 500 / 500 500 / 500 Balance 500 / 500 500 / 500 Weight 78.3 kg Intake: IV 500 / 500 500 / 500 NS Inj 1,000 ML @ 100 mls/hr IV 500 / 500 500 / 500 .CONT .Q10H [facility] Rx#:[id number] Other: # Voids 1 Weight On Admission 79.7 kg - Constitutional no acute distress, average body habitus - Routine HEENT Exam Head: Present: normocephalic, atraumatic Eye: Present: PERRL, normal accommodation ENT: Present: mucous membranes moist - Routine Neck Exam Present: supple, trachea midline - Routine Respiratory Exam Present: wheezes Comments: wheezes in the bases - Routine Cardiovascular Exam Present: RRR - Routine Abdominal Exam Present: soft - Routine Skin Exam Present: intact - Routine Neurological Exam Present: alert, oriented X3 Results 08/03/18 21:15 08/03/18 21:15 Cardiac Enzymes 08/03/18 08/03/18 08/04/18 Range/Units 21:15 21:15 00:10 AST 26 (15-37) U/L CK-MB (CK-2) 2.7 (0.5-3.6) ng/mL Troponin I Less than 0.02 L Less than 0.02 L (0.02-0.05) ng/mL B-Natriuretic Peptide 27 (0-100) pg/mL 08/04/18 Range/Units 03:30 AST (15-37) U/L CK-MB (CK-2) (0.5-3.6) ng/mL Troponin I Less than 0.02 L (0.02-0.05) ng/mL B-Natriuretic Peptide (0-100) pg/mL Coagulation 08/03/18 08/03/18 Range/Units 21:15 21:15 PT 10.4 (9.8-11.6) sec APTT 24.5 (24.3-30.1) sec B-Natriuretic Peptide 27 (0-100) pg/mL CBC 08/03/18 Range/Units 21:15 WBC 5.1 (4.0-11.0) th/mm3 RBC 5.02 (4.50-5.90) mil/mm3 Hgb 13.9 (13.0-17.0) gm/dL Hct 42.3 (39.0-51.0) % Plt Count 205 (150-450) th/mm3 Neut # (Auto) 2.5 (1.8-7.7) th/mm3 Lymph # (Auto) 2.0 (1.0-4.8) th/mm3 Cobb # (Auto) 0.4 (0.0-0.9) th/mm3 Eos # (Auto) 0.1 (0.0-0.4) th/mm3 Baso # (Auto) 0.1 (0.0-0.2) th/mm3 Comprehensive Metabolic Panel 08/03/18 Range/Units 21:15 Sodium 141 (136-145) meq/L Potassium 4.1 (3.5-5.1) meq/L Chloride 105 (98-107) meq/L Carbon Dioxide 27.6 (21.0-32.0) meq/L BUN 13 (7-18) mg/dL Creatinine 0.74 (0.60-1.30) mg/dL Calcium 9.1 (8.5-10.1) mg/dL AST 26 (15-37) U/L ALT 43 (12-78) U/L Alkaline Phosphatase 68 (45-117) U/L Total Protein 7.4 (6.4-8.2) g/dL Albumin 3.8 (3.4-5.0) g/dL Intake and Output 08/04/18 08/04/18 08/04/18 06:59 14:59 22:59 Intake Total 500 / 500 500 / 500 Balance 500 / 500 500 / 500 Intake: IV 500 / 500 500 / 500 NS Inj 1,000 ML @ 100 mls/hr IV 500 / 500 500 / 500 .CONT .Q10H [facility] Rx#:[id number] Other: # Voids 1 Weight 78.3 kg Weight On Admission 79.7 kg - Imaging and Cardiology Imaging: Impressions Chest X-Ray 08/03/18 21:17 CONCLUSION: No acute cardiopulmonary disease. Myocardial Perfusion Scan Nuc Med 08/04/18 00:00 CONCLUSION: Small size moderate severity reversible inferoapical perfusion abnormality Assessment and Plan - Plan Assessment ASHD Chest pain HTN Hyperlipidemia Plan -Symptoms the same as prior to stent placement in 2003. Abnormal nuclear stress test. Symptoms relieved by nitro. All options discussed in detail with patient and including the risk of heart catheterization. They understand the risk, and elect to proceed. We will arrange for a stat transfer. We will plan to proceed with heart catheterization tomorrow a.m. -On statin and ASA, will add beta ronnie. The patient was seen and evaluated by Dr. Lin who participated in care management and decision making. worrisome symptoms with similar pain to needing stent in 2003. will proceed with cath. Discussed with pt by telephone risks or cardiac catheterization reviewed in detail. Will proceed in am. Stat transfer to [facility] for cath Discussed Condition With: Patient, , and RN
--- NOTE | 2018-08-04 16:01 | ECG ---
Date Performed: 08/03/2018 Time Performed: 21:08:41 PTAGE: 78 years EKG: Sinus rhythm WITH OCCASIONAL VENTRICULAR PREMATURE COMPLEXES Since previous tracing, no significant change noted BORDERLINE ECG PREVIOUS TRACING : 09/26/2010 02.50 DOCTOR: Maureen Lin Interpretating Date/Time 08/04/2018 15:59:35
--- NOTE | 2018-08-04 16:01 | ECG ---
Date Performed: 08/04/2018 Time Performed: 00:03:53 PTAGE: 78 years EKG: SINUS BRADYCARDIA Since previous tracing, no significant change noted BORDERLINE ECG PREVIOUS TRACING : 08/03/2018 21.08 DOCTOR: Maureen Lin Interpretating Date/Time 08/04/2018 15:59:46
[2018-08-04] MEDS: Lisinopril 10 MG Tablet PO SCH ×2 (16:58→18:44)
[2018-08-04] MEDS ORDERED: Finasteride 5 MG Tablet PO SCH (18:00)
[2018-08-04] MEDS ORDERED: Montelukast 10 MG Tablet PO SCH (18:00)
[2018-08-04] MEDS ORDERED: Loratadine 10 MG Tablet PO SCH (21:00)
[2018-08-04] MEDS: Metoprolol Tartrate 25 MG Tablet PO SCH (21:23)
[2018-08-05] MEDS ORDERED: Chlorhexidine Gluconate 2% 1 Pack (2 Cloths) TOPICAL PRN (04:00)
[2018-08-05] MEDS ORDERED: Chlorhexidine Gluconate 2% 1 Pack (2 Cloths) TOPICAL SCH (04:00)
[2018-08-05] MEDS: Sod Chloride 0.9% Inj 1,000 ML IV.CONT SCH (04:08)
[2018-08-05 05:09] LABS: Baso % (Auto) 0.6 % (0.0-2.0); Eos # (Auto) 0.2 th/mm3 (0.0-0.4); Eos % (Auto) 3.2 % (0.0-4.0); Hematocrit 39.3 % (39.0-51.0); Lymph # (Auto) 2.3 th/mm3 (1.0-4.8); Lymph % (Auto) 49.7 % (9.0-44.0); Mean Corpuscular HGB Conc 33.1 % (32.0-36.0); Mean Corpuscular Hemoglobin 27.6 pg (27.0-34.0); Mean Corpuscular Volume 83.2 fL (80.0-100.0); Mean Platelet Volume 9.1 fL (7.0-11.0); Mono # (Auto) 0.5 th/mm3 (0.0-0.9); Mono % (Auto) 10.4 % (0.0-8.0); Neut # (Auto) 1.7 th/mm3 (1.8-7.7); Neut % (Auto) 36.1 % (16.0-70.0); Platelet Count 194 th/mm3 (150-450); Red Blood Count 4.72 mil/mm3 (4.50-5.90); Red Cell Distribution Width 14.8 % (11.6-17.2); White Blood Count 4.7 th/mm3 (4.0-11.0)
[2018-08-05 05:20] LABS: INR 1.1 Ratio; Prothrombin Time 10.9 sec (9.8-11.6)
[2018-08-05 05:50] LABS: Anion Gap 7 meq/L (5-15); Blood Urea Nitrogen 17 mg/dL (7-18); Calcium 8.1 mg/dL (8.5-10.1); Carbon Dioxide 27.5 meq/L (21.0-32.0); Chloride 109 meq/L (98-107); Glomerular Filtration Rate Greater Than 89 mL/min (>89); Glucose,Random 92 mg/dL (74-106); Potassium 4.1 meq/L (3.5-5.1); Sodium 143 meq/L (136-145)
[2018-08-05 08:21] VITALS: BP 131/68; PULSE 58; RESP 18; TEMP 98.8
[2018-08-05] MEDS ORDERED: Heparin/NS PF Inj 1,500 ML ONE (08:21)
[2018-08-05] MEDS ORDERED: Heparin 10,000 UNITS/10 ML Vial (for IV use) ONE (08:22)
[2018-08-05] MEDS ORDERED: fentaNYL Citrate Inj 100 MCG/2 ML Ampul ONE (08:22)
[2018-08-05] MEDS ORDERED: MethylPREDNISolone Sod Succinate Inj 125 MG/2 ML Vial ONE (08:47)
--- NOTE | 2018-08-05 09:29 | CATHPROC ---
[facility] HIS Report Study Information Study Number Admission Scheduled Start Study Start [id number] Aug 03 2018 11:27PM 08/04/2018 Aug 05 2018 7:55AM [facility] Cardiac Catheterization Admit Source Facility Department Other [facility] Physician and Clinical Staff Initial MD Lin, Maureen Coater Operator Insulation Board Charlie Rodriguez,RN Recorder Deysi Truong ,RT(R) Scrub Tiffany Joyce RCIS TECH2 Procedures Performed Procedure Location (Site) Vessel Name Coronary Angiograms LCA Left Coronary Coronary Angiograms RCA Right Coronary L Heart Cath LV Gram-hand inj. LV LV Ventricle Equipment Time Business Director Description Size Mfg Part Number Used/Scraped TRANSDUCER, TRUWAVE [id number] 07:56 KUHN COTTO * Used W/STOCKCOCK *[id number] INTRODUCER SET, 07:56 [employer] FR 5 [id number] *[id number] Used MICROPUNCTURE STIFF 538-476 *[id number] 538-420 *[id number] 538-453S *[id number] 07:56 [employer] BLANKET,WARM AIR CCL * Used *[id number] 07:56 [employer] PACK, CCL CUSTOM * Used *[id number] 07:56 [employer]IT PACER PEN, SKIN DUAL W/ RULER * Used *[id number] 07:56 [employer] WIRE, 3MMJ .035 180CM 180CM Used *[id number] PROBE COVER, STERILE [id number] 07:56 [employer] MEDICAL * Used ULTRASOUND W/ GEL *[id number] 07:56 [employer]AMIC MANIFOLD, 4 PORT * Used *[id number] 07:56 [employer] OMNIPAQUE, 350 MG, 150ML 150ML [id number] Used [id number] 07:56 [employer] MEDICAL SHEATH, FR4 TERUMO (10CM) FR 4 Used *[id number] History: Current Medications Medication Dosage/Unit Route Frequency Last Date/Time Taken Statins (any) Beta Chacorta ASA History: Allergies Allergy Reaction Contrast Media ALMOST CODED Keflex Rash iohexol ALMOST CODED diatrizoate meglumine ALMOST CODED cephalexin Rash gadoteridol ALMOST CODED gadodiamide ALMOST CODED iodixanol ALMOST CODED gadobenic acid ALMOST CODED History: Risk Factors Family History of Hypertension Dyslipidemia Previous CA Previous Heart Failure Premature CAD Yes Yes Yes Yes No Prior Valve Prior PCI Prior PCIDate Prior CABG Surgery No Yes 10/20/2003 No Cerebrovascular Chronic Lung On Dialysis Disease Disease No No Yes History: Stress Tests Stress or Imaging Studies Performed Yes Standard Exercise Stress Test No Stress Echo No Stress Test SPECT Yes Stress Test CMR No Cardiac CTA Coronary Calcium Score No No History: Other Current Smoker No Labs Hgb (g/dl) Hct (%) WBC (l/cumm) Platelets (thousands) 11.60-17.00 35.00-51.00 4.00-11.00 150.00-450.00 13.0 39.3 4.7 194 Glucose (mg/dl) BUN (mg/dl) Creatinine (mg/dl) BUN:Creatinine (1:x) 74.00-106.00 7.00-18.00 0.50-1.30 10.00-20.00 92 17 0.7 24.3 Na (meq/l) K (meq/l) 136.00-145.00 3.50-5.10 143 4.1 INR (PTT:PT) 0.90-1.10 1.1 Troponin I (ng/ml) CPK (u/l) CPK-MB (ng/ML) 0.02-0.05 26.00-308.00 0.50-3.60 0.02 125 2.7 Medication Medication Total Dose (Bolus/Oral) Medication Total Dosage/Unit 1% XYLOCAINE 15 mL BENADRYL 50 mg FENTANYL 50 mcg SOLU-MEDROL 125 mg VERSED 2 mg Medications (Bolus/Oral) Medication Time Given Dosage/Unit Administered By Reason BENADRYL 08/05/2018 8:49:33 AM 50 mg Jnenifer, Charlie 50 mg BENADRYL given in lab by Charlie Rodriguez RN via Peripheral IV. Ordered by Maureen Lin. SOLU-MEDROL 08/05/2018 8:51:00 AM 125 mg Jennifer, Charlie 125 mg SOLU-MEDROL given in lab by Charlie Rodriguez RN via Peripheral IV. Ordered by Maureen Lin. VERSED 08/05/2018 8:53:30 AM 2 mg Jennifer, Charlie 2 mg VERSED given in lab by Charlie Rodriguez RN via Peripheral IV. Ordered by Maureen Lin. FENTANYL 08/05/2018 8:54:03 AM 50 mcg Charlie Rodriguez 50 mcg FENTANYL given in lab by Charlie Rodriguez RN via Peripheral IV. Ordered by Maureen Lin. 1% XYLOCAINE 08/05/2018 8:55:49 AM 15 mL Maureen Lin 15 mL 1% XYLOCAINE given in lab by Maureen Lin via Subcutaneous. Ordered by Maureen Lin. Medication (Drip) Medication Time Given Dosage/Unit Concentration/Unit Diluent (ml) Solution IV Solutions 08/05/2018 8:22:21 AM 50 mL (IV) NaCl .9 Patient arrived on IV Solutions via Peripheral IV. Pump/Drip Flow using NaCl .9. Initial Case Assessment Cardiovascular HR NIBP 60 131/74 Edema Present Skin color Skin None Normal Warm Dry Circulatory - Right Pulses Dorsalis Pedis Femoral 2 2 Scale (0,1,2,3,4,d) Circulatory - Left Pulses Dorsalis Pedis Femoral 2 2 Scale (0,1,2,3,4,d) Neurological State Oriented to time-place- Alert Moves all extremities person Respiration - General Respiration Rate SpO2 (%) (B/min) 20 99 Final Case Assessment Cardiovascular HR NIBP 60 131/74 Edema Present Skin color Skin None Normal Warm Dry Circulatory - Right Pulses Dorsalis Pedis Femoral 2 2 Scale (0,1,2,3,4,d) Circulatory - Left Pulses Dorsalis Pedis Femoral 2 2 Scale (0,1,2,3,4,d) Neurological State Oriented to time-place- Alert Moves all extremities person Respiration - General Respiration Rate SpO2 (%) (B/min) 20 99 Chronological Log Time Study Chronological Log 8:14:28 Patient arrived via Bed. 8:14:29 Patient Name, D.O.B, / Armband Verified By R.N. 8:14:30 Consent signed by the physician and the patient and verified by the [facility] staff. 8:14:31 Pre-op and post- op instructions given; patient acknowledges understanding of instructions. 8:14:44 Verbal Stimulation=2 Physical Stimulation=2 Airway=2 Respiration=2 TOTAL=8. (0=absent, 1=li mited, 2=present) Vitals capture started with the following parameters, Patient=Adult, Interval=5 min, Initial Pr qnvnbg=845 mmHg, 8:22:08 Deflation Rate=5 mmHg, Cuff placed on Left Arm 8:22:14 Patient has been NPO for More than 6Hrs. 8:22:17 Skin Breakdown- none per patient 8:22:18 Patient Warmer Placed on the Table. 8:22:20 Stanton Prominences Protected 8:22:20 A # 20 IV was noted in the Antecubital (left). Grade = 0 8:22:21 Patient arrived on IV Solutions via Peripheral IV. Pump/Drip Flow using NaCl .9. 8:22:27 History and physical on the chart or being dictated. Assessment: Initial Case, HR=60 BPM, PKPL=183/74 mmhg, Edema=None, Color=Normal, Skin = Warm, D ry Right Pulses: Neal Ped=2, Femoral=2 8:22:27 Left Pulses: Neal Ped=2, Femoral=2 Neurological: State=Alert, Ox3, PATEL Respiration: Resp=20 B/min, SpO2=99 % 8:22:50 HR=59 bpm, QEVY=380/74 mmhg, SpO2=99.0 %, Resp=11 B/min 8:24:44 HR=59 bpm, KSIN=158/69 mmhg, UjP7=722.0 %, Resp=8 B/min, Pain=0, Ryan=10, Vasquez=2 8:25:55 Reference ECG taken 8:26:41 HR=61 bpm, JEZQ=206/78 mmhg, CxG0=121.0 %, Resp=22 B/min 8:28:44 HR=59 bpm, BWKO=610/76 mmhg, SwN7=113.0 %, Resp=31 B/min 8:30:45 HR=59 bpm, HXUT=761/76 mmhg, WzA8=751.0 %, Resp=12 B/min, Pain=0, Ryan=10, Vasquez=2 8:32:41 HR=61 bpm, ROBJ=249/77 mmhg, QzT7=944.0 %, Resp=16 B/min, Pain=0, Ryan=10, Vasquez=2 8:32:54 paged 8:34:26 Pressure channel 1 zeroed. 8:34:42 HR=61 bpm, STOF=904/75 mmhg, ZwB5=584.0 %, Resp=8 B/min, Pain=0, Ryan=10, Vasquez=2 8:36:45 HR=60 bpm, DKGK=200/64 mmhg, SpO2=99.0 %, Resp=29 B/min, Pain=0, Ryan=10, Vasquez=2 8:38:44 HR=59 bpm, VEZP=709/74 mmhg, CmO8=513.0 %, Resp=31 B/min, Pain=0, Ryan=10, Vasquez=2 8:40:43 HR=64 bpm, LWDH=161/78 mmhg, XeK4=439.0 %, Resp=19 B/min, Pain=0, Ryan=10, Vasquez=2 8:42:44 HR=58 bpm, QWXI=841/78 mmhg, NmP6=221.0 %, Resp=22 B/min, Pain=0, Ryan=10, Vasquez=2 8:45:23 HR=59 bpm, DFAK=620/73 mmhg, MdQ8=080.0 %, Resp=25 B/min, Pain=0, Ryan=10, Vasquez=2 8:46:49 HR=63 bpm, NDTM=341/72 mmhg, GcQ9=373.0 %, Resp=21 B/min, Pain=0, Ryan=10, Vasquez=2 8:48:44 HR=58 bpm, RSIH=743/75 mmhg, SpO2=99.0 %, Resp=15 B/min 8:49:25 MD arrived. 8:49:33 50 mg BENADRYL given in lab by Charlie Rodriguez, RN via Peripheral IV. Ordered by Judith Lin. 8:50:45 HR=64 bpm, YOIH=819/80 mmhg, SpO2=99.0 %, Resp=30 B/min, Pain=0, Ryan=10, Vasquez=2 8:51:00 125 mg SOLU-MEDROL given in lab by Charlie Rodriguez, RN via Peripheral IV. Ordered by Kun Lin. 8:52:48 HR=61 bpm, CBZR=467/76 mmhg, VyS2=001.0 %, Resp=22 B/min Time Out. Correct patient, correct procedure, correct physician, labs, allergies, and equipment verified with bed laborer 8:52:52 team present. Fire risk assesment completed (see hard stop sheet for coding). Time Out Concu rred by MD and individual staff in procedure. 8:53:30 2 mg VERSED given in lab by Charlie Rodriguez, RN via Peripheral IV. Ordered by Maureen Lin. 8:54:03 50 mcg FENTANYL given in lab by Charlie Rodriguez, RN via Peripheral IV. Ordered by Mariana Lin. 8:54:49 HR=63 bpm, WZQY=717/84 mmhg, SpO2=99.0 %, Resp=15 B/min 8:55:45 Case Start 8:55:49 15 mL 1% XYLOCAINE given in lab by Maureen Lin via Subcutaneous. Ordered by Dusty Lin. 8:56:54 HR=63 bpm, ABLL=334/78 mmhg, SpO2=96.0 %, Resp=9 B/min 8:57:01 Access site was Right Femoral Artery. A INTRODUCER SET, MICROPUNCTURE STIFF FR 5 was advanced into the Fem Art (right) using the Mk milian 8:57:09 technique. A SHEATH, FR4 TERUMO (10CM) FR 4 was exchanged in the Fem Art (right). This was necessary in ord er to 8:57:16 accomodate a larger catheter. 8:58:46 HR=62 bpm, MNUM=715/76 mmhg, SpO2=97.0 %, Resp=17 B/min A JL 4.0 INFINITI CATHETER FR 4 was advanced over a wire. OMNIPAQUE, 350 MG, 150ML 150ML was use d for 8:59:25 injections. 9:00:49 HR=63 bpm, PQUY=775/80 mmhg, SpO2=96.0 %, Resp=12 B/min Recorded Pressure: Ao, HR=60, Condition=Condition 1 9:01:51 (Aorta) Ao 127/66/91 9:02:48 HR=62 bpm, UWAC=445/79 mmhg, SpO2=95.0 %, Resp=15 B/min 9:02:59 The LCA was injected and visualized at various angles. OMNIPAQUE, 350 MG, 150ML 150ML used. After removing the current catheter a 3DRC INFINITI CATHETER FR 4 was advanced over a WIRE, 3MMJ .035 180CM 9:04:43 180CM. 9:04:49 HR=63 bpm, VKVV=685/77 mmhg, SpO2=97.0 %, Resp=13 B/min, Pain=0, Ryan=10, Vasquez=2 9:05:56 The RCA was injected and visualized at various angles. OMNIPAQUE, 350 MG, 150ML 150ML used. 9:06:50 HR=63 bpm, TAWJ=422/76 mmhg, SpO2=95.0 %, Resp=16 B/min 9:08:17 Catheter was removed 9:08:50 HR=62 bpm, JJXP=662/73 mmhg, SpO2=95.0 %, Resp=14 B/min A PIGTAIL ANG. INFINITI CATHETER FR 4 was advanced over a wire. OMNIPAQUE, 350 MG, 150ML 150ML w as used 9:09:34 for injections. 9:10:49 HR=60 bpm, KPDT=745/79 mmhg, SpO2=95.0 %, Resp=17 B/min 9:12:50 HR=62 bpm, BABP=936/68 mmhg, SpO2=96.0 %, Resp=16 B/min, Pain=0, Ryan=10, Vasquez=2 Recorded Pressure: LV, HR=61, Condition=Condition 1 9:13:35 (Left Ventricle) LV 145/8/20 9:13:58 The LV was manually injected with 10 cc's and visualized. OMNIPAQUE, 350 MG, 150ML 150ML use d. Recorded Pressure: LV, Ao, HR=63, Condition=Condition 1 9:14:18 (Left Ventricle) LV 126/11/20, (Aorta) Ao 122/59/84 9:14:33 Catheter was removed 9:14:36 Case End (Physician broke scrub) Assessment: Final Case, HR=60 BPM, GENS=852/74 mmhg, Edema=None, Color=Normal, Skin = Warm, Dry Right Pulses: Neal Ped=2, Femoral=2 9:14:46 Left Pulses: Neal Ped=2, Femoral=2 Neurological: State=Alert, Ox3, PATEL Respiration: Resp=20 B/min, SpO2=99 % 9:14:51 HR=58 bpm, JHGN=400/71 mmhg, SpO2=95.0 %, Resp=16 B/min 9:15:04 Catheter(s) removed without difficulty 9:16:09 Sterile dressing applied to site 9:16:10 No case complications noted. 9:16:11 Cine recording checked. 9:16:12 Bedside Report will be given. 9:16:15 A Left Heart Cath was performed. 9:16:48 HR=56 bpm, ZSGA=357/71 mmhg, SpO2=95.0 %, Resp=8 B/min 9:18:51 HR=56 bpm, WPDW=534/70 mmhg, SpO2=97.0 %, Resp=21 B/min 9:20:47 HR=57 bpm, BFDH=008/73 mmhg, SpO2=97.0 %, Resp=14 B/min 9:22:48 HR=56 bpm, SIQK=176/72 mmhg, SpO2=96.0 %, Resp=14 B/min 9:24:51 HR=58 bpm, NDGA=060/73 mmhg, SpO2=97.0 %, Resp=17 B/min 9:26:52 HR=54 bpm, RNIH=698/73 mmhg, SpO2=97.0 %, Resp=14 B/min 9:28:49 HR=54 bpm, OQGB=528/72 mmhg, SpO2=97.0 %, Resp=17 B/min 9:35:10 [facility] Study - Contrast Media Used In Study Contrast Total Opened (mL) Total Used (mL) Total Wasted (mL) Omnipaque 40 40 0 End Study - Maximum Contrast Load Max Contrast Load (mL) 559.4 End Study - Radiation Exposure Fluoro Time (minutes) 4.5 End Study - Sheaths Sheaths Pulled By Sheath Hold Time (min) Tiffany Joyce End Study - Patient Disposition Complications Transferred To Interventional Outcome No Regular Bed No attempt made
[2018-08-05 09:54] VITALS: O2SAT 98
--- NOTE | 2018-08-05 10:27 | P.PNIM ---
Subjective Interval history: Patient seen after heart catheterization. He reports he is feeling great. He denies any chest pain, no shortness of breath. He has been cleared by cardiology for discharge. Physical Exam Vital signs: Vital Signs 08/04/18 13:04 08/04/18 17:05 08/04/18 18:00 Temperature 99.0 F 97.9 F 97.8 F Pulse Rate 59 L 62 70 Respiratory Rate 16 16 20 Blood Pressure 133/63 135/84 144/73 H Pulse Oximetry 98 95 96 08/04/18 20:00 08/05/18 00:00 08/05/18 04:00 Temperature 98.2 F 98.2 F 99 F Pulse Rate 78 54 L 59 L Respiratory Rate 22 20 20 Blood Pressure 126/83 110/57 L 106/59 L Pulse Oximetry 96 96 95 08/05/18 08:00 08/05/18 08:42 08/05/18 09:50 Temperature 98.8 F Pulse Rate 58 L Respiratory Rate 18 Blood Pressure 131/68 Pulse Oximetry 99 96 98 Intake & Output 08/04/18 08/05/18 08/05/18 18:59 06:59 18:59 Intake Total 2100 / 2100 1240 / 1240 10 10 Output Total 1200 / 1200 Balance 2100 / 2100 40 / 40 10 / 10 Weight 78.3 kg Intake: IV 1500 / 1500 1000 / 1000 10 / 10 Heparin/NS PF Inj 1,500 ML @ 0 10 / 10 mls/hr .ROUTE .STK-MED ONE Rx#: [id number] NS Inj 1,000 ML @ 100 mls/hr IV 1500 / 1500 1000 / 1000 .CONT .Q10H [facility] Rx#:[id number] Oral 600 / 600 240 / 240 Output: Urine 1200 / 1200 Other: # Voids 3 Narrative: GENERAL: This is a well-nourished, well-developed patient, in no apparent distress. CARDIOVASCULAR: Normal rate and regular rhythm without murmurs, gallops, or rubs. RESPIRATORY: Good respiratory efforts. Breath sounds equal and clear to auscultation bilaterally. GASTROINTESTINAL: Abdomen soft, non-tender, non-distended. Normal active bowel sounds MUSCULOSKELETAL: Extremities without cyanosis, or edema. NEURO: Alert & Oriented x4 to person, place, time, situation. Moves all ext x4 PSYCH: Appropriate mood and affect. Results - Labs CBC & Chem 7: 08/05/18 04:05 08/05/18 04:05 Laboratory Results - last 24 hr 08/04/18 08/05/18 08/05/18 18:30 04:05 04:05 WBC 4.7 RBC 4.72 Hgb 13.0 Hct 39.3 MCV 83.2 MCH 27.6 MCHC 33.1 RDW 14.8 Plt Count 194 MPV 9.1 Neut % (Auto) 36.1 Lymph % (Auto) 49.7 H Sierra % (Auto) 10.4 H Eos % (Auto) 3.2 Baso % (Auto) 0.6 Neut # (Auto) 1.7 L Lymph # (Auto) 2.3 Sierra # (Auto) 0.5 Eos # (Auto) 0.2 Baso # (Auto) 0.0 WBC Differential . Differential Comment Auto diff final PT 10.9 INR 1.1 Sodium Potassium Chloride Carbon Dioxide Anion Gap BUN Creatinine Estimated GFR Random Glucose Calcium Nasal Screen MRSA (PCR) Not detected 08/05/18 04:05 WBC RBC Hgb Hct MCV MCH MCHC RDW Plt Count MPV Neut % (Auto) Lymph % (Auto) Sierra % (Auto) Eos % (Auto) Baso % (Auto) Neut # (Auto) Lymph # (Auto) Sierra # (Auto) Eos # (Auto) Baso # (Auto) WBC Differential Differential Comment PT INR Sodium 143 Potassium 4.1 Chloride 109 H Carbon Dioxide 27.5 Anion Gap 7 BUN 17 Creatinine 0.76 Estimated GFR Greater than 89 Random Glucose 92 Calcium 8.1 L D Nasal Screen MRSA (PCR) Assessment and Plan - Assessment (1) Chest pain Code(s): R07.9 - Chest pain, unspecified Status: Acute (2) PVC's (premature ventricular contractions) Code(s): I49.3 - Ventricular premature depolarization Status: Acute - Plan 78-year-old male patient with history of coronary artery disease who presented to the hospital with chest pain. A nuclear stress test showed a possible small area of reversible defect. 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 He underwent heart catheterization. No significant stenosis found. The patient's symptoms completely resolved. He is cleared by cardiology for discharge. He is to continue on the same home medications per the med rec. Hyperlipidemia, chronic: We will continue home statin. History of asthma: Not in exacerbation. We will continue home inhaler. Discharge Planning: Discharge patient to home Condition on discharge: Improved Regular Diet as tolerated Ad Charla activity Rx written: None Follow-up with primary care physician (1) Chest pain Qualifiers: Chest pain type: precordial pain Qualified Code(s): R07.2 - Precordial pain
--- NOTE | 2018-08-05 11:35 | MP ---
cc: Maureen Lin MD, Humayun A MD Rimpel, Ricardy MD Pontey,Kike MCGRAW DATE OF OPERATION: CONSENT: Written informed consent was obtained prior to the procedure. Risks are , bleeding, myocardial infarction, perforation, aspiration, stent placement, foreseen and unforeseen complications were reviewed. The patient fully understood risks. SEDATION USED: [place] and katalina PROCEDURE: The patient was draped in usual manner. Right femoral artery was entered using a micropuncture technique via the 4-American sheath, left and right coronary catheters were used to intubate the left and right coronaries. Pigtail catheter was used to intubate the left ventricle. Multiple angiograms carried out. At the end of the catheterization procedure, all catheters and sheaths were removed. Manual pressure was applied with good hemostasis achieved. The patient returned to his room in stable condition. HEMODYNAMICS: The aortic pressure was 122/59 with mean aortic pressure of 84. Left ventricle pressure of 124 with a left ventricular end-diastolic pressure of 20. There was no evidence of significant gradient on pullback across the LV outflow tract and aortic valve. LEFT VENTRICULOGRAM: The overall left ventricular ejection fraction estimated at 60%. There was no significant mitral regurgitation or mural thrombus. CORONARY ARTERIES: There was heavy calcification of the left main and circumflex vessels and LAD. There was evidence of a stent in the LAD in the mid point, there was a large first diagonal branch which was free of significant disease. There was diffuse disease of the LAD of about 25%. The previously placed stent was noted that had some mild in-stent restenosis for about 25%. There was a small second diagonal branch that had about 50% to 60% disease, but it was essentially tiny and of no consequence. The circumflex vessel with a large dominant vessel. It too was calcified. There was a large first obtuse marginal branch that had some mild 25% disease. The second obtuse marginal branch was also a large vessel and free of significant disease. The third obtuse marginal branch was small. The right coronary artery was a medium size vessel. It was also calcified though mildly. There was a small posterior descending artery. There was a very small first posterolateral and a medium size second posterolateral branch. Again, mild diffuse disease of about 25% was seen, but no significant stenoses. CONCLUSION: 1. Widely patent stent in the left anterior descending with some mild in-stent restenosis. 2. Calcification of the left anterior descending circumflex vessel. 3. Mild diffuse disease of the right coronary. PLAN: Continued medical management and risk factor reduction. l. MD TORIE Parra/blas , 09:32 AM , 09:39 AM [email or web address]
[2018-08-05] MEDS: Metoprolol Tartrate 25 MG Tablet PO SCH (11:40)
[2018-08-05] MEDS: Pantoprazole Sodium 20 MG DR Tablet PO SCH (11:40)
[2018-08-05] MEDS: Budesonide-Formoterol 160/4.5 MCG 6 GM Inhaler INH SCH (11:40)
[2018-08-05] MEDS ORDERED: Iohexol 350 MG/ML 50 ML Vial (for Cath Lab) IVCONTRAST ONE (12:44)
== END 2018-08-05 14:20 | disposition home or self-care (01) ==
LOC: PHEDA 20:37 → PHED 20:37 → INTOOBSV 23:27 → PHEDA 08-04 02:22 → PH3 08-04 02:26 → HIMC 08-04 18:25 → HCIS 08-05 11:43
PROVIDERS: ADMIT Family Medicine; ATTEND Family Medicine